=== PATIENT | female | born 1975 | race Caucasian/White ===

== ENCOUNTER 2018-07-25 17:27 | Emergency (ER) | payer BC ==
--- OUTSIDE RECORDS SUMMARY | 2018-07-25 17:33 | XMS REPORT | Continuity of Care Document ---
:1975 External Reference #:[id number] Author Name Nilda Nance Care Team Providers Name Role Phone Romero Perez MD Care Team Information Registered Radiologic Technologist Unavailable Romero Perez MD Primary Care Physician Unavailable Payers Type Date Identification Numbers Payment Provider Subscriber Policy Number: [id number] [facility] Jerome Taylor PayID: [id number] [address] [place] [address] Advance Directives Description No Information Available Problems Description No Information Family History Date Family Member(s) Problem(s) Comments Father 82 Father No Current Problems Mother 71 Mother No Current Problems Social History Type Date Description Comments Sex Unknown Tobacco Use Start: Unknown Never Smoked Cigarettes ETOH Use Current Alcohol Use - 1-3 Days A Week. Recreational Drug Use Never Used Drugs Allergies, Adverse Reactions, Alerts Date Description Reaction Status Severity Comments 07/16/2018 sulfa Hives, Itching Active Moderate Medications Medication Date Status Form Strength Qnty SIG Indications Ordering Provider Xyzal Allergy 0000/00 Active Tablets 1 by mouth Unknown 24HR 00 every day Singulair 0000/00 Active Tablets 10mg 1 by mouth Unknown 00 every day Lexapro 00 Active Tablets 10mg take one Unknown 00 tablet every day at night Immunizations Description No Information Available Vital Signs Date Vital Result Comment 07/16/2018 12:59pm Weight 115.00 lb Height 60 inches 5'0" BMI (Body Mass Index) 22.5 kg/m2 BP Systolic 100 mmHg BP Diastolic 78 mmHg Heart Rate 51 /min O2 % BldC Oximetry 98 % Body Temperature 97.9 F Pain Level 0 Results Description No Information Available Procedures Description No Information Available Encounters Description No Information Available Plan of Treatment No Information Available
[2018-07-25 17:43] VITALS: BP 97/66
--- NOTE | 2018-07-25 17:45 | UC ---
Lower Extremity/Ankle HPI - HPI Summary HPI Summary: 42 yo female presents with left ankle pain. She tells me that about 30min [employer] she was walking in her backyard and stepped on a ledge and inverted her left ankle. [place]/felt a pop and had immediate pain and swelling. She was able to ambulate, but had significant pain. She took ibuprofen and came directly to . Denies numbness or tingling - History of Current Complaint Chief Complaint: UCLowerExtremity Stated Complaint: ANKLE INJURY Time Seen by Provider: 07/25/18 17:45 Hx Obtained From: Patient Hx Last Menstrual Period: 06/26/18 Severity Initially: Mild Severity Currently: Mild Pain Intensity: 3 Pain Scale Used: 0-10 Numeric Aggravating Factor(s): Standing, Ambulation Alleviating Factor(s): Rest, Elevation Able to Bear Weight: Yes - Allergies/Home Medications Allergies/Adverse Reactions: Allergies Allergy/AdvReac Type Severity Reaction Status Date / Time Sulfa (Sulfonamide Allergy Hives Verified 07/25/18 17:43 Antibiotics) Home Medications: Home Medications Citalopram TAB* [Celexa TAB*] 1 tab PO DAILY 07/25/18 [History Confirmed ] LevoCETirizine TAB (NF) [Xyzal TAB (NF)] 1 tab PO DAILY 07/25/18 [History Confirmed 07/25/18] Montelukast Sodium TAB* [Singulair 10 MG TAB*] 1 tab PO DAILY 07/25/18 [History Confirmed 07/25/18] PMH/Surg Hx/FS Hx/Imm Hx Respiratory History: Asthma Psychological History: Anxiety, Depression - Surgical History Surgical History: Yes Surgery Procedure, Year, and Place: C-SECTIONS X 2, TUBAL LIGATON. - Family History Known Family History: Positive: None - Social History Occupation: Employed Full-time Alcohol Use: Occasionally Substance Use Type: Prescribed Smoking Status (MU): Never Smoked Tobacco Review of Systems Constitutional: Negative Skin: Negative Respiratory: Negative Cardiovascular: Negative Gastrointestinal: Negative Neurovascular: Negative Musculoskeletal: Other: - Left ankle pain Neurological: Negative Psychological: Negative All Other Systems Reviewed And Are Negative: Yes Physical Exam - Summary Physical Exam Summary: GENERAL: NAD. WDWN. No pain distress. SKIN: No rashes, sores, lesions, or open wounds. CHEST: No accessory muscle use. Breathing comfortably and in no distress. CV: Pulses intact PT and DP. Cap refill <2seconds MSK: LEFT ANKLE: Moderate edema and mild ecchymosis at lateral malleolus. Mild TTP over posterior lateral malleolus and ATFL. FROM, pain with inversion. Strength 5/5. Negative talar tilt. No increased laxity. NEURO: Alert. Sensations intact and symmetric B/L LEs PSYCH: Age appropriate behavior. Triage Information Reviewed: Yes Vital Signs: Initial Vital Signs Temp 99.4 F 07/25/18 17:40 Pulse 73 07/25/18 17:40 Resp 12 07/25/18 17:40 BP 97/66 07/25/18 17:40 Pulse Ox 100 07/25/18 17:40 Vital Signs Reviewed: Yes Lower Extremity Course/Dx - Course Course Of Treatment: XR: No radiologist read after 1800, therefore wet read by myself is negative for fracture. Suspect ankle sprain. Pt was placed in an KAYLA wrap, gel splint, and provided with crutches. Advised to RICE and continue taking ibuprofen. F/u with ortho if symptoms worsen or persist. - Differential Dx/Diagnosis Provider Diagnoses: Left ankle sprain Discharge - Sign-Out/Discharge Documenting (check all that apply): Patient Departure All imaging exams completed and their final reports reviewed: No - Discharge Plan Condition: Stable Disposition: HOME Patient Education Materials: Ankle Sprain (ED) Referrals: Romero Perez MD [Primary Care Provider] - Nabeel Holley MD [Medical Doctor] - If Needed Additional Instructions: If you develop a fever, shortness of breath, chest pain, new or worsening symptoms - please call your PCP or go to the ED. 1) Rest, Ice, and elevate your ankle as much as possible 2) Use the gel splint and crutches for relief and comfort 3) May take 600mg ibuprofen every 6-8 hours as needed for pain - Billing Disposition and Condition Condition: STABLE Disposition: Home
--- NOTE | 2018-07-26 07:18 | RAD ---
INDICATION: Left ankle injury. TECHNIQUE: 3 views of the left ankle were obtained. FINDINGS: Soft tissue swelling is noted along the anterolateral aspect of the ankle. No fracture is seen. Joint spaces appear maintained. IMPRESSION: SOFT TISSUE SWELLING, NO FRACTURE IS SEEN. R0
--- NOTE | 2018-07-26 09:15 | UC ---
- Progress Note Progress Note: Radiologist reading of left ankle x-ray from July 25, 2018 comes back with no fracture and positive soft tissue swelling Wet read from the same date is no fracture and patient being treated for an ankle sprain. No change in patient care at this time. Discharge - Sign-Out/Discharge Documenting (check all that apply): Patient Departure All imaging exams completed and their final reports reviewed: Yes - Discharge Plan Condition: Stable Disposition: HOME Patient Education Materials: Ankle Sprain (ED) Referrals: Nabeel Holley MD [Medical Doctor] - If Needed Romero Perez MD [Primary Care Provider] - Additional Instructions: If you develop a fever, shortness of breath, chest pain, new or worsening symptoms - please call your PCP or go to the ED. 1) Rest, Ice, and elevate your ankle as much as possible 2) Use the gel splint and crutches for relief and comfort 3) May take 600mg ibuprofen every 6-8 hours as needed for pain - Billing Disposition and Condition Condition: STABLE Disposition: Home
== END 2018-07-25 18:50 | disposition home or self-care (01) ==
LOC: UCEAST 17:27
DX: S93.402A Sprain of unspecified ligament of left ankle, initial encounter (principal); F41.9 Anxiety disorder, unspecified; F32.9 Major depressive disorder, single episode, unspecified; J45.909 Unspecified asthma, uncomplicated; W18.40XA Slipping, tripping and stumbling without falling, unspecified, initial encounter; Y92.9 Unspecified place or not applicable; Z88.2 Allergy status to sulfonamides
CPT/HCPCS: 99213; G0463

== ENCOUNTER → 2019-06-10 | Day surgery (SDC) | payer BC, OTHER ==
[~2019-06-10] MED LIST: Acetaminophen TAB* 325 MG PO PRN; Bacitracin OINTMENT* 0.5% 0.5 oz TUBE ONE; Bacitracin OPHTH.OINT* 3.5 GM ONE; Buffered Lidocaine 1% SYRIN* 1 ML/SYRINGE INTRADERM ONE; Dexamethasone IV* 4 MG/ML 1 ML (4 MG) ONE; DiMENhydriNATE IV* 50 MG/ML VIAL IV PUSH PRN; Ketorolac INJ* 30 MG/ML 1 ML VIAL ONE; Lactated Ringers 1000 ML Bag* 1,000 ML IV SCH; Lidocaine 1% w EPI 1:100,000* MDV 20 ML VIAL ONE; Lidocaine 2% PF * 5 ML VIAL ONE; Metoclopramide IV* 5 MG/ML 2 ML VIAL ONE; Midazolam* 1 MG/ML 2 ML VIAL (2 MG) ONE; Naloxone* 0.4 MG/ML 1 ML VIAL IV PRN; Ondansetron INJ* 2 MG/ML VIAL ONE; Rocuronium* 10 MG/ML VIAL ONE; Sugammadex * 200 MG/2 ML VIAL IV PUSH ONE; fentaNYL* 50 MCG/ML 2 ML VIAL (100 MCG VIAL) IV PRN; fentaNYL* 50 MCG/ML 2 ML VIAL (100 MCG VIAL) ONE; oxyCODONE TAB* 5 MG TAB ONE; oxyCODONE TAB* 5 MG TAB PO PRN
[2019-06-10 14:15] VITALS: BP 112/71
--- NOTE | 2019-06-10 14:18 | OP ---
OPERATIVE NOTE: DATE OF OPERATION: 06/10/19 DATE OF : 79 SURGEON: Romero Valenzuela MD. PRE-OP DIAGNOSIS: Right neck lymph node. POST-OP DIAGNOSIS: Right neck lymph node. OPERATIVE PROCEDURE: Excisional biopsy of a deep neck lymph node on the right side under general int erscalene anesthesia. COMPLICATIONS: None. DISPOSITION: Good. SPECIMENS: Right neck lymph node, sent fresh for flow cytometry. ESTIMATED BLOOD LOSS: Minimum. DESCRIPTION OF PROCEDURE: The patient has a level 2 upper jugular digastric lymph node, and based on the FNA, was asked that she have an excisional biopsy. She was placed in the supine position on the operating room table, general anesthesia was induced, and she was orotracheally intubated. Her head was extended, and I had made a demarcated incision in a skin crease just under where she had pointed to where she felt the lymph node. This was injected with 1% lidocaine with 1:100,000 epinephrine, p repped with DuraPrep and draped in a sterile fashion. Incision was made through the skin, through th e platysma muscle, and then with blunt dissection, I dissected down to the lymph node using bipolar a nd cut technique. I systematically isolated the lymph node and removed it and sent it as previously described. Hemostasis was ensured. The platysma muscle and skin were closed with deep dermal 3-0 Vi cryl, running subcuticular Monocryl, skin glue, Steri-Strips, and Mastisol. The patient tolerated th e procedure well. No complications. Transferred to the recovery room in stable condition. [id number]/[facility] #: [id number]
== END | disposition home or self-care (01) ==
LOC: OR 10:53
PROVIDERS: ATTEND Otolaryngology
DX: R59.0 Localized enlarged lymph nodes (principal); J30.89 Other allergic rhinitis; F41.9 Anxiety disorder, unspecified
CPT/HCPCS: 88184; 88185; 88187; 88188; 88189; 88305; 88333; A9270-GY; J1100; J1885; J2250; J2405; J2765; J3010

== ENCOUNTER 2021-11-11 08:43 | Observation (INO) ==
[2021-11-11] MEDS ORDERED: Tetan/Diph/Pertus SYR(Tdap) 0.5 ML SYR(BOOSTRIX) use SYR contains LATEX IM ONE (09:42)
[2021-11-11 09:50] LABS: ABS Lymphocytes 0.6 10^3/ul (1.0-4.8); ABS Monocytes 0.4 10^3/ul (0-0.8); ABS Neutrophils 7.8 10^3/ul (1.5-7.7); Eosinophil % 0.1 %; Hematocrit 39 % (35-47); Hemoglobin 13.5 g/dL (12.0-16.0); Lymphocyte % 6.8 %; Mean Corpuscular HGB Conc 35 g/dL (31-36); Mean Corpuscular Hemoglobin 31 pg (27-31); Mean Corpuscular Volume 88 fL (80-97); Mean Platelet Volume 7.9 fL (7.4-10.4); Nucleated Red Blood Cells % 0.1; Platelet Count 247 10^3/uL (150-450); Red Blood Count 4.39 10^6 /uL (3.70-4.87); Red Cell Distribution Width 13 % (10-15); White Blood Count 8.8 10^3/uL (3.5-10.8)
[2021-11-11 10:07] LABS: Albumin 4.4 g/dL (3.2-5.2); Albumin/Globulin Ratio 1.6 (1-3); C Reactive Protein 49.8 mg/L (<8.01); Calcium 9.6 mg/dL (8.6-10.3); Globulin 2.8 g/dL (2-4); Potassium 3.7 mmol/L (3.5-5.0); Total Bilirubin 1.6 mg/dL (0.2-1.0); Total Protein 7.2 g/dL (6.4-8.9); eGFR CKD-EPI 111.7 (>60)
[2021-11-11] MEDS ORDERED: Iohexol 300 (CONTRAST) 10 ML SDV IV ONE (10:10)
[2021-11-11 10:54] LABS: Urine Appearance Cloudy; Urine Bilirubin Negative (Negative); Urine Blood 2+ (Negative); Urine Color Amber; Urine Glucose Negative (Negative); Urine Ketones Negative (Negative); Urine Nitrite Negative (Negative); Urine Protein 1+(30 mg/dL) (Negative); Urine Specific Gravity 1.027 (1.002-1.030); Urine Urobilinogen Positive (Negative)
[2021-11-11 11:15] LABS: Urine Bacteria 1+ (Absent); Urine Red Blood Cell Trace(0-2/hpf) (Absent); Urine Squamous Epithelial Cell Present (Absent); Urine White Blood Cell Trace(0-5/hpf) (Absent)
[2021-11-11] MEDS ORDERED: NS 0.9% 1000 ml BAG 1,000 ML IV SCH (12:00)
[2021-11-11] MEDS ORDERED: Piperacillin/Tazobac ADVAN 3.375 GM in NS 0.9% 100 ml BAG 100 ML IV SCH (12:00)
[2021-11-11] MEDS ORDERED: Zosyn per Pharmacy NOTE FOLLOW UP PRN ×2 (12:05→12:57)
[2021-11-11] MEDS ORDERED: ZOSYN 3.375 GM x ONE DOSE over 30 miuntes IV (13:00)
[2021-11-11] MEDS ORDERED: HYDROmorphone 0.5 MG/0.5 ML SYRINGE IV SLOW PU PRN (14:04)
[2021-11-11 14:05] LABS: Rapid COVID-19 Molecular Undetected (Undetected)
[2021-11-11] MEDS ORDERED: Ondansetron 4 mg VIAL 2 MG/ML 2 ml VIAL ONE (14:46)
[2021-11-11] MEDS ORDERED: Rocuronium 50 mg VIAL 10 mg/ml 5 ml VIAL (50 mg) ONE (14:46)
[2021-11-11] MEDS ORDERED: Propofol 10 MG/ML 20 ML BTL ONE (14:46)
[2021-11-11] MEDS ORDERED: fentaNYL 250 mcg/5 ml 50 MCG/ML 5 ml VIAL (250 MCG) ONE (14:46)
[2021-11-11] MEDS ORDERED: Midazolam 2 mg/2 ml VIAL 1 mg/ml 2 ml VIAL (2 mg) ONE (14:46)
[2021-11-11] MEDS ORDERED: Lidocaine 2% PF 5 ML VIAL ONE (14:46)
[2021-11-11] MEDS ORDERED: Dexamethasone IV 4 MG/ML VIAL 1 ml VIAL ONE (14:46)
[2021-11-11] MEDS ORDERED: Buffered Lidocaine 1% SYRIN 1 ml INTRADERM ONE (15:34)
[2021-11-11] MEDS ORDERED: DiMENhydriNATE IV 50 mg/ml 1 ml VIAL IV PUSH PRN (15:34)
[2021-11-11] MEDS ORDERED: fentaNYL 100 mcg/2 ml 50 MCG/ML VIAL IV PRN (15:34)
[2021-11-11] MEDS ORDERED: Naloxone 0.4 mg VIAL 0.4 mg/ml 1 ml VIAL IV PRN (15:34)
[2021-11-11] MEDS ORDERED: Bupivacaine 0.25% SDV 30 ML ONE (15:48)
[2021-11-11] MEDS ORDERED: Lactated Ringers 1000 ml BAG 1,000 ML IV SCH (16:00)
[2021-11-11] MEDS ORDERED: Succinylcholine 200 mg VIAL 20 mg/ml 10 ml VIAL (200 mg) ONE (16:19)
[2021-11-11] MEDS ORDERED: Bupivacaine 0.5% W/EPI SDV 10 ML VIAL INJ ONE (16:27)
[2021-11-11] MEDS ORDERED: Acetaminophen IV 1 GM/100ML 100 ML IV ONE (16:30)
[2021-11-11] MEDS ORDERED: Phenylephrine 40 mcg/mL 10mL (400mcg) SYRINGE ONE (16:32)
[2021-11-11] MEDS ORDERED: ZOSYN 3.375 GM Q8H per EXTENDED INFUSION IV SCH (17:00)
[2021-11-11 17:55] VITALS: BP 102/76
== END 2021-11-11 18:20 | disposition home or self-care (01) ==
LOC: EDHOLD 08:43 → ED 08:43 → EDHOLD 14:21
PROVIDERS: ADMIT Physician Assistant Medical; ATTEND Surgery